=== PATIENT | female | born 1965 | race Caucasian/White ===

== ENCOUNTER → 2019-12-06 07:49 | Outpatient (CLI) | payer BC, SELFPAY ==
--- NOTE | ~2019-12-06 | US_ITS ---
US abdomen complete EXAMINATION: US Abdomen Complete INDICATION: Thrombocytopenia PROCEDURE: Realtime High Resolution abdomen ultrasound. COMPARISON: No prior studies for comparison FINDINGS: Gallbladder contains a nonmobile echogenic focus measuring 6 mm. No gallstones, gallbladder wall thickening or pericholecystic fluid. Common bile duct measures 5 mm. Liver echotexture within normal limits without focal mass. Pancreas within normal limits. Pancreati c tail is obscured by bowel gas. Spleen is unremarkeable. Renal echotexture is within normal limits bilaterally without hydronephrosis, contour deforming mass or renal stone. Right kidney measures 11.6 cm. Left kidney measures 11.6 cm. Visualized aspects of the aorta and IVC are within normal limits. Portal vein is patent. No sonograph ic Alvarado's sign indicated by the technologist. IMPRESSION: 1: Gallbladder polyp measuring 6 mm. Reviewed, dictated and finalized at location B.
== END ==
PROVIDERS: PCP Emergency Medicine; Visit Provider Emergency Medicine
DX: D69.6 Thrombocytopenia, unspecified (principal); K82.4 Cholesterolosis of gallbladder
CPT/HCPCS: 76700

== ENCOUNTER → 2020-01-05 12:14 | Outpatient (CLI) | payer BC, SELFPAY ==
--- NOTE | ~2020-01-05 | DEXA_ITS ---
Bone Density Report Name: Flory Barajas Age: 54 Sex: Female Ethnicity: White Date of : 1965 Indication: postmenopausal; screening for osteoporosis; Referring Provider: GABRIEL LOPEZ Study: Bone densitometry was performed. Exam Date: January 05, 2020 Accession number: [id number] Bone Density: Region BMD T-score Z-score Classification AP Spine (L1-L4) 1.062 0.1 1.3 Normal Femoral Neck (Left) 0.758 -0.8 0.3 Normal Total Hip (Left) 0.983 0.3 1.1 Normal Femoral Neck (Right) 0.738 -1.0 0.1 Normal Total Hip (Right) 0.930 -0.1 0.7 Normal Total Hip Mean 0.957 0.1 0.9 Normal World Health Organization criteria for BMD impression classify patients as: Normal (T-score at or above -1.0), Osteopenia (T-score between -1.0 and -2.5), or Osteoporosis (T-score at or below -2.5). 10-year Fracture Risk: FRAX not reported because: All T-scores for Spine Total, Hip Total, Femoral Neck at or above -1.0 Clinical Information Provided by Patient: Patient maximum height was 64 Menopause Age: 51 No regular weight bearing exercise Drinks caffeinated beverages Onset of menses at age 10 Number of children 2 Impression: The patient has normal bone mass. Discussion: BONE DENSITY IS ABOVE THE MINIMUM DESIRABLE LEVEL AT ALL SKELETAL SITES TESTED. This patient?s bone mineral density is above the minimum desirable level (T-score -1.0 or better) at all sites measured. The patient should follow a healthful lifestyle (good nutrition with adequate calcium and vitamin D, and appropriate weight-bearing exercise). Follow-Up: Consider repeating this study in 5 years or sooner if there is some new clinical indication. Reported by: KAILYN on 01/05/2020 2:56:00 PM. Reviewed, dictated and finalized at location A. [facility]
--- NOTE | ~2020-01-05 | MM_ITS ---
EXAMINATION: MM screening [facility] BI w sheree HISTORY: Screening TECHNIQUE: Craniocaudal and mediolateral oblique 3-D tomosynthesis images were obtained and synthetic 2-D images were generated. CAD analysis was submitted and interpreted. COMPARISON: Comparison to multiple prior studies sequentially, with oldest reviewed study dated 11/05. BREAST PARENCHYMAL COMPOSITION: There are scattered areas of fibroglandular density. FINDINGS: There is no evidence of suspicious mass, calcification, or architectural distortion to sugg est malignancy in either breast. There has been no suspicious interval change. IMPRESSION: 1. No mammographic evidence of malignancy. 2. Recommend routine screening mammography in one year. BI-RADS Category 1: Negative Reviewed, dictated and finalized at location A.
== END ==
PROVIDERS: PCP Emergency Medicine; Visit Provider Emergency Medicine
DX: Z12.31 Encounter for screening mammogram for malignant neoplasm of breast (principal); Z78.0 Asymptomatic menopausal state
CPT/HCPCS: 77063; 77067; 77080

== ENCOUNTER → 2020-07-02 10:18 | Outpatient (CLI) | payer BC, SELFPAY ==
--- NOTE | ~2020-07-02 | US_ITS ---
EXAMINATION: US abdomen limited DATE: 07/02/2020 10:34 INDICATION: Cluster almost a gallbladder TECHNIQUE: Multiple grayscale and Doppler ultrasound images of the abdomen were obtained. COMPARISON: 12/06/2019 FINDINGS: The head, body, and tail of the pancreas are normal. The liver is normal with normal echoge nicity and echotexture. No surface nodularity. Normal hepatopetal flow in the main portal vein. There is a 6 mm gallbladder polyp which is not significantly changed since the comparison examination. The re is no gallbladder wall thickening or pericholecystic fluid. The normal common bile duct measures 5 mm. There was no sonographic Alvarado sign. IMPRESSION: 1. Stable 6 mm gallbladder polyp. Reviewed, dictated and finalized at location B.
== END ==
PROVIDERS: Visit Provider Surgery
DX: K82.4 Cholesterolosis of gallbladder (principal)
CPT/HCPCS: 76705

== ENCOUNTER → 2021-04-16 10:26 | Outpatient (CLI) | payer BC, SELFPAY ==
--- NOTE | ~2021-04-16 | MM_ITS ---
EXAMINATION: MM screening [facility] BI w sheree HISTORY: Screening mammogram TECHNIQUE: Craniocaudal and mediolateral oblique 3-D tomosynthesis images were obtained and synthetic 2-D images were generated. CAD analysis was submitted and interpreted. COMPARISON: 01/05/2020, 05/13/2018, 04/28/2018, 03/11/2017 BREAST PARENCHYMAL COMPOSITION: There are scattered areas of fibroglandular density. FINDINGS: There is no evidence of suspicious mass, calcification, or architectural distortion to sugg est malignancy in either breast. There has been no suspicious interval change. IMPRESSION: 1. No mammographic evidence of malignancy. 2. Recommend routine screening mammography in one year. BI-RADS Category 1: Negative Reviewed, dictated and finalized at location A. [employer]
== END ==
PROVIDERS: PCP Emergency Medicine; Visit Provider Emergency Medicine
DX: Z12.31 Encounter for screening mammogram for malignant neoplasm of breast (principal)
CPT/HCPCS: 77063; 77067

== ENCOUNTER → 2021-07-02 08:11 | Outpatient (CLI) | payer BC, SELFPAY ==
--- NOTE | ~2021-07-02 | US_ITS ---
EXAMINATION: US abdomen limited DATE: 07/02/2021 08:48 INDICATION: Cholesterolosis of the gallbladder TECHNIQUE: Multiple grayscale and Doppler ultrasound images of the abdomen were obtained. COMPARISON: 07/02/2020 FINDINGS: The head and body of the pancreas are normal. The pancreatic tail is obscured by bowel gas. The liver is normal with normal echogenicity and echotexture. No surface nodularity. Normal hepatope lauro flow in the main portal vein. There is a 7 mm polyp of the gallbladder, not significantly changed since the comparison examination. There is no pericholecystic fluid. The normal common bile duct cici sures 6 mm. There was no sonographic Alvarado sign. IMPRESSION: 1. Stable gallbladder polyp. Follow-up ultrasound in one year is recommended. Reviewed, dictated and finalized at location A.
== END ==
PROVIDERS: PCP Emergency Medicine; Visit Provider Surgery
DX: K82.4 Cholesterolosis of gallbladder (principal)
CPT/HCPCS: 76705

== ENCOUNTER → 2022-06-04 10:53 | Outpatient (CLI) | payer BC, SELFPAY ==
--- NOTE | ~2022-06-04 | MM_ITS ---
EXAMINATION: MM screening [facility] BI w sheree HISTORY: Screening mammogram TECHNIQUE: Craniocaudal and mediolateral oblique 3-D tomosynthesis images were obtained and synthetic 2-D images were generated. CAD analysis was submitted and interpreted. COMPARISON: 04/16/2021, 01/05/2020 bilateral screening mammogram examinations BREAST PARENCHYMAL COMPOSITION: There are scattered areas of fibroglandular density. FINDINGS: There is no evidence of suspicious mass, calcification, or architectural distortion to sugg est malignancy in either breast. There has been no suspicious interval change. IMPRESSION: 1. No mammographic evidence of malignancy. 2. Recommend routine screening mammography in one year. BI-RADS Category 1: Negative Reviewed, dictated and finalized at location A.
--- NOTE | ~2022-06-04 | US_ITS ---
Limited Abdominal Sonogram: Real-time sonographic imaging of the right upper quadrant was performed. Clinical History: Gallbladder polyp COMPARISON: 07/02/2021 Findings: The liver appears normal with no evidence of mass lesion or bile duct dilatation. Main por lauro vein demonstrates normal direction of flow. The gallbladder is well distended, without mobile gal lstone. 8 mm gallbladder wall polyp is stable from prior exam. The common bile duct measures 4 mm. T he visualized pancreas, aorta, and IVC are unremarkable. Right kidney measures 11.1 cm in length, wit hout evidence of hydronephrosis. Impression: 8 mm gallbladder wall polyp, unchanged. Reviewed, dictated and finalized at location M. Impression: 8 mm gallbladder wall polyp, unchanged.
== END ==
PROVIDERS: PCP Emergency Medicine; Visit Provider Emergency Medicine
DX: Z12.31 Encounter for screening mammogram for malignant neoplasm of breast (principal); K82.4 Cholesterolosis of gallbladder
CPT/HCPCS: 76705; 77063; 77067

== ENCOUNTER 2024-01-19 11:25 | Outpatient (CLI) | payer BC, SELFPAY ==
--- NOTE | ~2024-01-19 | MM_ITS ---
EXAMINATION: MM screening [facility] BI w sheree HISTORY: Screening mammogram TECHNIQUE: Craniocaudal and mediolateral oblique 3-D tomosynthesis images were obtained and synthetic 2-D images were generated. CAD analysis was submitted and interpreted. COMPARISON: 06/04/2022, 04/16/2021, 01/05/2020 BREAST PARENCHYMAL COMPOSITION:Not Dense. There are scattered areas of fibroglandular density. FINDINGS: No suspicious mass, calcification, or architectural distortion are identified in either sha ast to suggest malignancy. There has been no suspicious interval change. IMPRESSION: No mammographic evidence of malignancy. Recommend routine screening mammography in one year. BI-RADS Category 1: Negative Reviewed, dictated and finalized at location .
== END 2024-01-19 11:26 | disposition home or self-care (01) ==
LOC: MICIMG 11:27
PROVIDERS: PCP Emergency Medicine; Visit Provider Emergency Medicine
DX: Z12.31 Encounter for screening mammogram for malignant neoplasm of breast (principal)
CPT/HCPCS: 77063; 77067

== ENCOUNTER 2024-05-26 00:43 | Day surgery (SDC) | payer OTHER, SELFPAY ==
[2024-05-11 14:52] VITALS: BMI 25.7
--- OUTSIDE RECORDS SUMMARY | 2024-05-26 00:48 | XMS_ITS | Clinical Summary ---
Author Organization [facility] Address [address] [place] [address] Care Team Providers Care Dry Wall Plasterer Name Role Phone Beka Luis MD Primary Care Provider [phone] Source Comments [facility],non-owned Affiliates and Associated Physician Practices is amultiple site organization consisting of ambulatory clinics and hospital sitesin [place] and [place]. This disclosure is being madepursuant to the Care Everywhere program and may not contain all information available regarding this patient. Last updated 17.[employer] Allergies No known active allergies Medications Be aware that medications may not be up to date on this document. Always verify current medications with the patient. No known medications Social History Tobacco Use Types Packs/Day Years Used Date Smoking Tobacco: Never Sex and Gender Information Value Date Recorded Sex Assigned at Not on file Gender Identity Not on file Sexual Orientation Not on file Last Filed Vital Signs Vital Sign Reading Time Taken Comments Blood Pressure 142/102 06/11/2016 3:41 PM CDT Pulse 117 06/11/2016 3:21 PM CDT Temperature 37.1 C (98.7 F) 06/11/2016 3:21 PM CDT Respiratory Rate 16 06/11/2016 3:21 PM CDT Oxygen Saturation 99% 06/11/2016 3:21 PM CDT Inhaled Oxygen Concentration - - Weight 67.1 kg (148 lb) 06/11/2016 3:21 PM CDT Height 162.6 cm (5' 4 ) 06/11/2016 3:21 PM CDT Body Mass Index 25.4 06/11/2016 3:21 PM CDT Plan of Treatment Health Maintenance Due Date Last Done Comments COLOGUARD (AGES 45-75) - COL ON CA SCREENING 1965 COLON MONITORING 1965 COLONOSCOPY - COLON CA SCREENING 1963 CT COLONOGRAPHY - COLON CA SCREENING 1965 Colorectal Cancer Screening 1965 FIT - COLON CA SCREENING 1963 FLEX SIG - COLON CA SCREENING 1965 LIPID TESTING 1965 MAMMOGRAM 1965 PAP SMEAR 1963 HIV SCREENING 1978 HEPATITIS C SCREENING 04/26/1981 DTAP/TDAP/TD VACCINES (1 - Tdap) 1982 PNEUMOCOCCAL VACCINE 50+ (1 of 1 - PCV) 2013 ZOSTER VACCINE (1 of 2) 2013 COVID-19 VACCINE ( - 2023-2 5 season) 2023 INFLUENZA VACCINE (#1) 2023 DEPRESSION SCREENING 03/23/2024 Respiratory Syncytial Virus (RSV) Vaccine Pt: or over 60 yrs (1 - 1-dose 75+ series) 2038 HEPATITIS B VACCINE Aged Out No longe r eligible based on patient's age to complete this topic HIB VACCINE Aged Out No longer eligi ble based on patient's age to complete this topic HPV VACCINE Aged Out No longer eligi ble based on patient's age to complete this topic MENINGOCOCCAL (Group B) VACCINE Aged Out No longer eligible based on patient's age to complete this topic MENINGOCOCCAL VACCINE Aged Out No perlita cee eligible based on patient's age to complete this topic PNEUMOCOCCAL VACCINE Aged Out No long er eligible based on patient's age to complete this topic Care Teams Dry Wall Plasterer Relationship Specialty Start Date End Date Beka Luis MD [address] [place] [address] PCP - General 05/27/18
--- OUTSIDE RECORDS SUMMARY | 2024-05-26 00:48 | XMS_ITS | Referral Summary ---
Author Organization [facility] Address [address] [place] [id number] Care Team Providers Care Meat Cutter Apprentice Name Role Phone Amish De Jesus MD Primary Care Provider [phone] Allergies No known active allergies Medications metoprolol (LOPRESSOR) 100 mg tablet 1 03/25/2018 Active sertraline (ZOLOFT) 50 mg tablet 0 04/22/2018 Active metoprolol XL (TOPROL-XL) 100 mg 24 hr tablet 03/22/2021 Active rosuvastatin (CRESTOR) 10 mg tablet 03/05/2021 Active Allergy Relief, fexofenadine, 180 mg tablet 02/02/2021 Active zolpidem CR (AMBIEN CR) 12.5 mg CR tablet 02/20/2021 Active Active Problems Problem Noted Date Diagnosed Date Cyst of left breast 06/02/2018 Social History Tobacco Use Types Packs/Day Years Used Date Smoking Tobacco: Never Smokeless Tobacco: Never Alcohol Use Standard Drinks/Week Comments Yes 0 (1 standard drink = 0.6 oz pur e alcohol) Personal Safety Answer Date Recorded Getting School Help Needed Not on file 06/04 Comments No Sex and Gender Information Value Date Recorded Sex Assigned at Not on file Legal Sex Female 1:53 AM COUNTER SUPPLY WORKER Gender Identity Not on file Sexual Orientation Not on file Last Filed Vital Signs Vital Sign Reading Time Taken Comments Blood Pressure 146/89 03/28/2021 10:39 AM COUNTER SUPPLY WORKER Pulse 71 03/28/2021 10:39 AM COUNTER SUPPLY WORKER Temperature 36.9 C (98.5 F) 03/28/2021 10:39 AM COUNTER SUPPLY WORKER Respiratory Rate 16 03/28/2021 10:39 AM COUNTER SUPPLY WORKER Oxygen Saturation 96% 03/28/2021 10:39 AM COUNTER SUPPLY WORKER Inhaled Oxygen Concentration - - Weight 67.6 kg (149 lb) 03/28/2021 10:39 AM COUNTER SUPPLY WORKER Height 162.6 cm (5' 4 ) 03/28/2021 10:39 AM COUNTER SUPPLY WORKER Body Mass Index 25.58 03/28/2021 10:39 AM COUNTER SUPPLY WORKER Plan of Treatment Not on file [place] Care Teams Meat Cutter Apprentice Relationship Specialty Start Date End Date Amish De Jesus MD [address] [place] [address] PCP - General Family Medicine 03/28/21
--- OUTSIDE RECORDS SUMMARY | 2024-05-26 00:48 | XMS_ITS | Patient Health Summary ---
Author Organization [facility] [employer] Address [address] [facility] [place] [address] Care Team Providers Care Inspector Production Plastic Parts Name Role Phone Beka Luis MD Primary Care Provider [phone] Note from [facility] [employer] [facility],non-owned Affiliates and Associated Physician Practices is amultiple site organization consisting of ambulatory clinics and hospital sitesin [place], [place], [place] and [place]. This disclosure is being madepursuant to the Care Everywhere program and may not contain all information available regarding this patient. Last updated 17.[facility] [employer] Allergies No known active allergies Medications Be [...] Mass Index 25.4 06/11/2016 3:21 PM CDT Procedures * STREP A SCREEN - POINT OF CARE (AMB) STL(Performed 06/11/2016) Performed for Acute pharyngitis, unspecified etiology Results * STREP A SCREEN (06/11/2016) Strep A Rapid POCT Negative Negative Strep A Internal Control Present Lot # [id number] Expiration Date [id number] Throat ENTIRE THROAT (SURFACE REGION OF NECK) / Unknown 06/11/2016 To[facility] DEV TECHNICAL [facility] EXP[facility] - POINT OF CARE ORDERABLES Care Teams Inspector Production Plastic Parts Relationship Specialty Start Date End Date Beka Luis MD [address] [place] [address] PCP - General 05/27/18
--- OUTSIDE RECORDS SUMMARY | 2024-05-26 00:48 | XMS_ITS | Encounter Summary ---
Author Organization [facility] Address [address] [place] [address] Care Team Providers Care Bath House Attendant Name Role Phone Unavailable Primary Care Provider Unavailabl e Encounter Details Date Type Department Care Team (Late st Contact Info) Description 05/24/2024 External Device Data [facility] ABSTRACTION Provider, Abstract NO ADDRESS ON FILE Social History Tobacco Use Types Packs/Day Years Used Date Smoking Tobacco: Never Assessed Comments Unknown Sex and Gender Information Value Date Recorded Sex Assigned at Not on file Legal Sex Female 12:16 PM CDT Gender Identity Not on file Sexual Orientation Not on file documented as of this encounter Plan of Treatment Not on file documented as of this encounter Visit Diagnoses Not on filedocumented in this encounter
--- OUTSIDE RECORDS SUMMARY | 2024-05-26 00:48 | XMS_ITS | Referral Summary ---
Author Organization [facility] Address [address] [place] [address] Care Team Providers Care Counsel Name Role Phone Beka Luis MD Primary Care Provider [phone] Source Comments [facility],non-owned Affiliates and Associated Physician Practices is amultiple site organization consisting of ambulatory clinics and hospital sitesin [place], [place], [place] and [place]. This disclosure is being madepursuant to the Care Everywhere program and may not contain all information available regarding this patient. Last updated 17.[facility] Allergies No known active allergies Medications Be [...] 06/11/2016 3:21 PM CDT Plan of Treatment Not on file Care Teams Counsel Relationship Specialty Start Date End Date Beka Luis MD [address] [place] [address] PCP - General 05/27/18
--- OUTSIDE RECORDS SUMMARY | 2024-05-26 00:48 | XMS_ITS | Clinical Summary ---
Author Organization [facility] Address [address] [place] [phone] Care Team Providers Care Rug Dyer Name Role Phone Amish De Jesus MD Primary Care Provider [phone] Allergies No known active allergies Medications metoprolol [...] Diagnosed Date Cyst of left breast 06/02/2018 Medical History Medical History Date Comments Hypertension Overweight Family History Medical History Relation Name Comments Colon cancer Paternal Grandmother Relation Name Status Comments Paternal Grandmother Social History Tobacco Use Types Packs/Day Years [...] on file Legal Sex Female 1:53 AM BRICK TOSSER Gender Identity Not on file Sexual Orientation Not on file Obstetrics History Last Filed Vital Signs Vital Sign Reading Time Taken Comments Blood Pressure 146/89 03/28/2021 10:39 AM BRICK TOSSER Pulse 71 03/28/2021 10:39 AM BRICK TOSSER Temperature 36.9 C (98.5 F) 03/28/2021 10:39 AM BRICK TOSSER Respiratory Rate 16 03/28/2021 10:39 AM BRICK TOSSER Oxygen Saturation 96% 03/28/2021 10:39 AM BRICK TOSSER Inhaled Oxygen Concentration - - Weight 67.6 kg (149 lb) 03/28/2021 10:39 AM BRICK TOSSER Height 162.6 cm (5' 4 ) 03/28/2021 10:39 AM BRICK TOSSER Body Mass Index 25.58 03/28/2021 10:39 AM BRICK TOSSER Plan of Treatment Not on file Insurance [employer] [place] [employer] [place] Care Teams Rug Dyer Relationship Specialty Start Date End Date Amish De Jesus MD [address] [place] [address] PCP - General Family Medicine 03/28/21
--- OUTSIDE RECORDS SUMMARY | 2024-05-26 00:48 | XMS_ITS | Clinical Summary ---
Author Organization [facility] Address [address] [place] [address] Care Team Providers Care Field Spec Name Role Phone Unavailable Primary Care Provider Unavailabl e Medications zolpidem (AMBIEN CR) 12.5 mg Controlled Release tablet TAKE 1 TABLET BY MOUTH EVERYDAY AT BEDTIME NEEDED FOR INSOMNIA, AVOID DRIVING OR OPERATING MACHINES. 30 Tablet 5 09/01/2022 3:16 PM CDT 2 Active sertraline (ZOLOFT) 50 mg tablet Take 1 Tablet (50 mg) by mouth daily. 90 Tablet 3 09/04/2022 11:07 AM CDT 3 Active rosuvastatin (Crestor) 20 mg tablet Take 1 Tablet (20 mg) by mouth daily. 90 Tablet 1 09/04/2022 11:07 AM CDT 3 Active fexofenadine (KAMALA) 180 mg tablet Take 1 Tablet (180 mg) by mouth daily. 90 Tablet 3 05/19/2023 1:14 PM METAL BUGGY OPERATOR 3 Active nebivoloL (BYSTOLIC) 10 mg Tablet Take 1 Tablet (10 mg) by mouth daily. 90 Tablet 3 03/13/2023 4:24 PM METAL BUGGY OPERATOR 3 Active rosuvastatin (Crestor) 20 mg tablet Take 1 Tablet (20 mg) by mouth daily. 90 Tablet 3 12/07/2023 4:10 PM CDT 3 Active sertraline (Zoloft) 50 mg tablet Take 1 Tablet (50 mg) by mouth daily. 90 Tablet 3 12/07/2023 4:10 PM CDT 3 Active zolpidem (Ambien CR) 12.5 mg Controlled Release tablet Take 1 Tablet (12.5 mg) by mouth daily at bedtime 30 Tablet 5 11/26/2023 12:27 PM CDT 4 Active ipratropium bromide (ATROVENT) 42 mcg (0.06 %) [place], Non-Aerosol Administer 2 sprays in each nostril 3 times daily 15 mL 2 06/26/2023 1:03 PM CDT 4 Active nebivoloL (BYSTOLIC) 10 mg Tablet Take 1 Tablet (10 mg) by mouth daily. 90 Tablet 3 03/08/2024 3:49 PM METAL BUGGY OPERATOR 4 Active zolpidem (Ambien CR) 12.5 mg Controlled Release tablet Take 1 Tablet (12.5 mg) by mouth daily at bedtime 90 Tablet 1 03/14/2024 9:21 AM METAL BUGGY OPERATOR 4 Active rosuvastatin (Crestor) 20 mg tablet Take 1 Tablet (20 mg) by mouth daily. 90 Tablet 3 03/14/2024 9:21 AM METAL BUGGY OPERATOR 4 Active fexofenadine (KAMALA) 180 mg tablet Take 1 Tablet (180 mg) by mouth daily. 90 Tablet 3 03/14/2024 9:21 AM METAL BUGGY OPERATOR 4 Active fluticasone propionate (FLONASE) 50 mcg/spray [place], Suspension nasal inhaler Administer 2 Sprays in each nostril daily. 16 Gram 03/14/2024 9:21 AM METAL BUGGY OPERATOR 4 Active nebivoloL (BYSTOLIC) 10 mg Tablet Take 1 Tablet (10 mg) by mouth daily. 90 Tablet 3 4 Active sertraline (Zoloft) 50 mg tablet Take 1 Tablet (50 mg) by mouth daily. 90 Tablet 3 03/14/2024 9:21 AM METAL BUGGY OPERATOR 4 Active Encounters Date Type Department Care Team Description 05/24/2024 External Device Data [facility] ABSTRACTION Provider, Abstract 05/10/2024 External Device Data [facility] ABSTRACTION Provider, Abstract 04/13/2024 External Device Data [facility] ABSTRACTION Provider, Abstract 04/12/2024 External Device Data [facility] ABSTRACTION Provider, Abstract 04/05/2024 External Device Data [facility] ABSTRACTION Provider, Abstract 03/29/2024 External Device Data [facility] ABSTRACTION Provider, Abstract from Last 3 Months Immunizations Immunization Administration Dates Next Due (COMIRNATY)(12 YR UP) COVID- 19 VACCINE, MRNA, SPIKE PROTEIN, LNP, JAMES(PF) 30 MCG/0.3 ML IM SUSP 01/19/2024 INFLUENZA VACCINE QUADRIVALENT 6 MOS UP PF IM ,12/13/2021 INFLUENZA VACCINE TRIVALENT SPLIT VIRUS, (6 MOS UP), 0.5ML (PF), IM 01/19/2024 Social History Tobacco Use Types Packs/Day Years Used Date Smoking Tobacco: Never Assessed Comments Unknown Sex and Gender Information Value Date Recorded Sex Assigned at Not on file Legal Sex Female 12:16 PM CDT Gender Identity Not on file Sexual Orientation Not on file Plan of Treatment Health Maintenance Due Date Last Done Comments DTAP/TDAP/TD VACCINES (1 - Tdap) 1982 CERVICAL CANCER SCREENING 1993 BREAST CANCER SCREENING 2003 COLORECTAL SCREENING 2008 Colorectal Cancer Screening 2008 FIT-DNA Q 3 years 2008 FIT/FOBT Q 1 year 2008 Flex Sig/CT Colonography Q 5 years 2008 ZOSTER VACCINE (1 of 2) 2013 RSV VACCINE (60+ or ) (1 - 1-dose 75+ series) 2038 COVID-19 Vaccine Completed 01/19/2024 INFLUENZA VACCINE Completed 01/19/2024, 12/11/2022, 12/13/2021 HEPATITIS B VACCINES Aged Out No long er eligible based on patient's age to complete this topic PNEUMOCOCCAL VACCINE 0-49 YEARS Aged Out No longer eligible b ased on patient's age to complete this topic Insurance RX [employer] Commercial RX [employer] PLANS (INTERNAL) [facility]
[2024-05-26 06:44] VITALS: BP 138/81; PULSE 64; RESP 16; TEMP 36.2; O2SAT 97; BMI 26.2
[2024-05-26] MEDS: LACTATED RINGERS 1,000 ML 150 ML IV CONT (06:51)
--- NOTE | 2024-05-26 07:02 | P.PNAN_ITS ---
Anes - Initial Pre Proc Eval Procedure: Operation Date: 05/26/24 08:00 Proposed Procedures p Colonoscopy - Rajan Francois MD Date/Time: 05/26/24 07:02 Surgeon: Rajan Francois MD Pre Op Diagnosis: Polyp colon Patient Data Age: 59 Gender: F Height: 1.63 m Weight: 69.2 kg Last Vital Signs Temp 36.2 C L 05/26/24 06:44 Pulse 64 05/26/24 06:44 Resp 16 05/26/24 06:44 BP 138/81 05/26/24 06:44 Pulse Ox 97 05/26/24 06:44 O2 Del Method Room Air 05/26/24 06:44 Allergies Allergy/AdvReac Type Severity Reaction Status Date / Time No Known Allergies Allergy Verified 05/26/24 06:43 Home Medications ?Medication ?Instructions ?Recorded ?Confirmed ?Type fexofenadine 180 mg tablet 180 mg PO DAILY 01/02/20 05/26/24 History ipratropium bromide 42 mcg (0.06 2 spray intranasal TID 01/02/20 05/26/24 History %) nasal spray metoprolol succinate 100 mg 100 mg PO DAILY 01/02/20 05/26/24 History tablet,extended release 24 hr rosuvastatin 10 mg tablet (Crestor) 10 mg PO DAILY 01/02/20 05/26/24 History sertraline 50 mg tablet (Zoloft) 50 mg PO DAILY 01/02/20 05/26/24 History multivitamin (Daily Multi-Vitamin 1 tablet PO DAILY 05/11/24 05/26/24 History tablet) zolpidem 12.5 mg tablet,extended 12.5 mg PO DAILY 05/11/24 05/26/24 History release,multiphase Patient hx anesthesia problems: none Family hx anesthesia problems: none Results Review: All pre-operative results and documents have been reviewed as part of the pre- operative evaluation. [facility], LAT[facility] Past Medical History Medical History High cholesterol HTN (hypertension) HLP (hyperkeratosis lenticularis perstans) Surgical History Surgical History Hx of tonsillectomy Family History Family History Father CHF (congestive heart failure) Parkinson disease Mother Hypertension Sibling Coronary artery disease Other Cancer Cerebrovascular accident Social History Social History Smoking status: Never smoker Alcohol intake: current Drinks per week: 3 Substance use: never Substance use type: does not use Living arrangements: with family Occupation/Education: other 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 Informed Consent: The patient's anesthetic plan and its attendant risks and benefits were discussed with the patient/family/POA. Questions were solicited and answers provided to the satisfaction of the patient/family/POA.
--- NOTE | 2024-05-26 07:42 | PM.HPGS ---
History of Present Illness History of Present Illness Consent: Risks, benefits, and alternatives have been discussed and questions answered. Patient agrees to proceed with procedure. Chief complaint: Polyp colon Narrative: Flory Barajas is a 59 year old female with colon polyp 6 years ago Review of Systems Review of Systems: All systems reviewed & are unremarkable except as noted in HPI and below PMFSH Past Medical History Medical History (Updated 05/26/24 @ 07:42 by Rajan Francois MD) Colon polyp High cholesterol HTN (hypertension) HLP (hyperkeratosis lenticularis perstans) Surgical History Surgical History Hx of tonsillectomy Family History Family History Father CHF (congestive heart failure) Parkinson disease Mother Hypertension Sibling Coronary artery disease Other Cancer Cerebrovascular accident Social History Social History Smoking status: Never smoker Alcohol intake: current Drinks per week: 3 Substance use: never Substance use type: does not use Living arrangements: with family Occupation/Education: other 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 Gender identity (if verbalized by the patient): Female Spiritual care concerns: No Meds Home Medications and Allergies Home Medications ?Medication ?Instructions ?Recorded ?Confirmed ?Type fexofenadine 180 mg tablet 180 mg PO DAILY 01/02/20 05/26/24 History ipratropium bromide 42 mcg (0.06 2 spray intranasal TID 01/02/20 05/26/24 History %) nasal spray metoprolol succinate 100 mg 100 mg PO DAILY 01/02/20 05/26/24 History tablet,extended release 24 hr rosuvastatin 10 mg tablet (Crestor) 10 mg PO DAILY 01/02/20 05/26/24 History sertraline 50 mg tablet (Zoloft) 50 mg PO DAILY 01/02/20 05/26/24 History multivitamin (Daily Multi-Vitamin 1 tablet PO DAILY 05/11/24 05/26/24 History tablet) zolpidem 12.5 mg tablet,extended 12.5 mg PO DAILY 05/11/24 05/26/24 History release,multiphase Allergies Allergy/AdvReac Type Severity Reaction Status Date / Time No Known Allergies Allergy Verified 05/26/24 06:43 Vital Signs Vital Signs - 24 hr 05/26/24 06:44 Temperature 97.2 F L Pulse Rate 64 Respiratory Rate 16 Blood Pressure 138/81 Pulse Oximetry 97 Oxygen Delivery Room Air Exam Const: General: comfortable and no acute distress HENMT: Face/Nose/Sinus: Normal nares present Eyes: General: appearance normal, both eyes and all related structures Neck: Neck: no JVD Resp: Auscultation: clear to auscultation bilaterally Cardio: Rate: regular rate Rhythm: regular rhythm GI: Inspection: non-distended GI Palp: Yes Soft to palpation Skin: General skin exam: normal color Neuro: General: gait normal Speech: normal speech Extrem: General: normal to inspection Psych: Mental Status: mental status grossly normal Assessment and Plan Assessment and plan (1) Colon polyp: Code(s): K63.5 - Polyp of colon Status: Acute Assessment and Plan: colonoscopy
[2024-05-26 07:57] VITALS: BP 100/65; PULSE 66; RESP 16; O2SAT 98
[2024-05-26 08:07] VITALS: BP 140/84; PULSE 68; RESP 16; O2SAT 100
[2024-05-26 08:17] VITALS: BP 130/89; PULSE 60; RESP 23; O2SAT 100
== END 2024-05-26 08:20 | disposition home or self-care (01) ==
PROVIDERS: PCP Emergency Medicine; Referring Provider Emergency Medicine; Visit Provider Internal Medicine Gastroenterology
PROC: 0DJD8ZZ Inspection of Lower Intestinal Tract, Via Natural or Artificial Opening Endoscopic (ICD-10-PCS; CPT 45378; principal; 2024-05-26 08:00)
DX: Z12.11 Encounter for screening for malignant neoplasm of colon (principal); K63.5 Polyp of colon; K57.30 Diverticulosis of large intestine without perforation or abscess without bleeding; K64.8 Other hemorrhoids
CPT/HCPCS: 45385; 88305; J2704; J7120

== ENCOUNTER 2024-08-04 13:56 | Outpatient (CLI) | payer OTHER, SELFPAY ==
--- NOTE | ~2024-08-04 | DEXA_ITS ---
Bone Density Report Name: SADNRA MCGEE Age: 59 Sex: Female Ethnicity: White Date of : 1965 Indication: postmenopausal; screening for osteoporosis; Referring Provider: GABRIEL LOPEZ Study: Bone densitometry was performed. Exam Date: August 04, 2024 Accession number: [id number] Bone Density: Region BMD T-score Z-score Classification AP Spine(L1-L4) 1.033 -0.1 1.4 Normal Femoral Neck (Left) 0.717 -1.2 0.2 Osteopenia Total Hip (Left) 0.979 0.3 1.3 Normal Femoral Neck (Right) 0.744 -0.9 0.4 Normal Total Hip (Right) 0.994 0.4 1.4 Normal Total Hip Mean 0.986 0.4 1.4 Normal World Health Organization criteria for BMD impression classify patients as: Normal (T-score at or above -1.0), Osteopenia (T-score between -1.0 and -2.5), or Osteoporosis (T-score at or below -2.5). 10-year Fracture Risk(1): Major Osteoporotic Fracture 7.7% Hip Fracture 0.5% Reported Risk Factors: [place] (), Neck BMD=0.717, BMI=26.4 (1) FRAX(R) Version 3.08. Fracture probability calculated for an untreated patient. Fracture probability may be lower if the patient has received treatment. Clinical Information Provided by Patient: Has used the following medications: Vitamin D, Calcium Patient maximum height was 64 Menopause Age: 51 No regular weight bearing exercise Does not regularly consume dairy products Drinks caffeinated beverages Onset of menses at age 10 Number of children 2 Impression: The patient has low bone mass, based on the Left Femoral Neck T-score. The patient has an estimated ten-year risk of hip fracture of 0.5% and an estimated ten-year risk of major fracture of 7.7%, based on the WHO FRAX algorithm. Discussion: BONE DENSITY IS LOW AT ONE OR MORE SKELETAL SITES. This patient's lowest T-score is low at one or more skeletal sites. It meets the World Health Organization's (WHO) criteria for “low bone mass” (T-score between -1.0 and -2.5). The patient's 10-year risk of fracture as calculated by FRAX is less than the threshold where pharmacological therapy is recommended by the National Osteoporosis Foundation (NOF). However, all treatment decisions require clinical judgment and consideration of individual patient factors, including patient preferences, comorbidities, previous drug use, risk factors not captured in the FRAX model (e.g., frailty, falls, vitamin D deficiency, increased bone turnover, interval significant decline in bone density) and possible under or overestimation of fracture risk by FRAX. The patient should follow a healthful lifestyle (good nutrition with adequate calcium and vitamin D, and appropriate weight-bearing exercise). Follow-Up: Consider repeating this study in 2 to 3 years to reassess this patient's status, or sooner if there is some new clinical indication. Reported by: KAILYN on 08/04/2024 2:42:00 PM. Reviewed, dictated and finalized at location A.
--- OUTSIDE RECORDS SUMMARY | 2024-08-04 14:02 | XMS_ITS | Clinical Summary ---
Author Organization [facility] Address [address] [place] [id number] Care Team Providers Care Heat Pump Installer Name Role Phone Amish De Jesus MD Primary Care Provider [phone] Allergies No known active allergies Medications metoprolol [...] on file Legal Sex Female 1:53 AM ADULT PROTECTIVE CASEWORKER Gender Identity Not on file Sexual Orientation Not on file Obstetrics History Last Filed Vital Signs Vital Sign Reading Time Taken Comments Blood Pressure 146/89 03/28/2021 10:39 AM ADULT PROTECTIVE CASEWORKER Pulse 71 03/28/2021 10:39 AM ADULT PROTECTIVE CASEWORKER Temperature 36.9 C (98.5 F) 03/28/2021 10:39 AM ADULT PROTECTIVE CASEWORKER Respiratory Rate 16 03/28/2021 10:39 AM ADULT PROTECTIVE CASEWORKER Oxygen Saturation 96% 03/28/2021 10:39 AM ADULT PROTECTIVE CASEWORKER Inhaled Oxygen Concentration - - Weight 67.6 kg (149 lb) 03/28/2021 10:39 AM ADULT PROTECTIVE CASEWORKER Height 162.6 cm (5' 4 ) 03/28/2021 10:39 AM ADULT PROTECTIVE CASEWORKER Body Mass Index 25.58 03/28/2021 10:39 AM ADULT PROTECTIVE CASEWORKER Plan of Treatment Not on file Insurance [employer] [place] Care Teams Heat Pump Installer Relationship Specialty Start Date End Date Amish De Jesus MD [address] [place] [address] PCP - General Family Medicine 03/28/21
--- OUTSIDE RECORDS SUMMARY | 2024-08-04 14:02 | XMS_ITS | Referral Summary ---
Author Organization [facility] Address [address] [place] [id number] Care Team Providers Care Band Builder Name Role Phone Amish De Jesus MD Primary Care Provider [phone] Allergies No known active allergies Medications metoprolol [...] on file Legal Sex Female 1:53 AM PIVOT END POLISHER Gender Identity Not on file Sexual Orientation Not on file Last Filed Vital Signs Vital Sign Reading Time Taken Comments Blood Pressure 146/89 03/28/2021 10:39 AM PIVOT END POLISHER Pulse 71 03/28/2021 10:39 AM PIVOT END POLISHER Temperature 36.9 C (98.5 F) 03/28/2021 10:39 AM PIVOT END POLISHER Respiratory Rate 16 03/28/2021 10:39 AM PIVOT END POLISHER Oxygen Saturation 96% 03/28/2021 10:39 AM PIVOT END POLISHER Inhaled Oxygen Concentration - - Weight 67.6 kg (149 lb) 03/28/2021 10:39 AM PIVOT END POLISHER Height 162.6 cm (5' 4 ) 03/28/2021 10:39 AM PIVOT END POLISHER Body Mass Index 25.58 03/28/2021 10:39 AM PIVOT END POLISHER Plan of Treatment Not on file Insurance [employer] [place] [employer] [place] Care Teams Band Builder Relationship Specialty Start Date End Date Amish De Jesus MD [address] [place] [address] PCP - General Family Medicine 03/28/21
--- OUTSIDE RECORDS SUMMARY | 2024-08-04 14:02 | XMS_ITS | Clinical Summary ---
Author [facility] Address [address] [place] [address] Care Team Providers Care Silk Spooler Name Role Phone Unavailable Primary Care Provider [...] daily. 90 Tablet 3 05/19/2023 1:14 PM SUPERVISOR VAT HOUSE 3 Active nebivoloL (BYSTOLIC) 10 mg Tablet Take 1 Tablet (10 mg) by mouth daily. 90 Tablet 3 03/13/2023 4:24 PM SUPERVISOR VAT HOUSE 3 Active rosuvastatin (Crestor) 20 mg tablet [...] ipratropium bromide (ATROVENT) 42 mcg (0.06 %) [place], Non-Aerosol Administer 2 sprays in each nostril 3 times daily 15 mL 2 06/26/2023 1:03 PM CDT 4 Active nebivoloL (BYSTOLIC) 10 mg Tablet Take 1 Tablet (10 mg) by mouth daily. 90 Tablet 3 03/08/2024 3:49 PM SUPERVISOR VAT HOUSE 4 Active zolpidem (Ambien CR) 12.5 mg Controlled Release tablet Take 1 Tablet (12.5 mg) by mouth daily at bedtime 90 Tablet 1 06/09/2024 3:16 PM CDT 4 Active rosuvastatin (Crestor) 20 mg tablet Take 1 Tablet (20 mg) by mouth daily. 90 Tablet 3 06/06/2024 2:06 PM CDT 4 Active fexofenadine (KAMALA) 180 mg tablet Take 1 Tablet (180 mg) by mouth daily. 90 Tablet 3 03/14/2024 9:21 AM SUPERVISOR VAT HOUSE 4 Active fluticasone propionate (FLONASE) 50 mcg/spray [place], Suspension nasal inhaler Administer 2 Sprays in each nostril daily. 16 Gram 03/14/2024 9:21 AM SUPERVISOR VAT HOUSE 4 Active nebivoloL (BYSTOLIC) 10 mg Tablet Take 1 Tablet (10 mg) by mouth daily. 90 Tablet 3 06/06/2024 2:06 PM CDT 4 Active sertraline (Zoloft) 50 mg tablet Take 1 Tablet (50 mg) by mouth daily. 90 Tablet 3 06/06/2024 2:06 PM CDT 4 Active Encounters Date Type Department Care Team Description 06/21/2024 External Device Data [facility] ABSTRACTION Provider, Abstract 06/08/2024 External Device Data [facility] ABSTRACTION Provider, Abstract 05/31/2024 External Device Data [facility] ABSTRACTION Provider, Abstract 05/31/2024 External Device Data [facility] ABSTRACTION Provider, Abstract 05/30/2024 External Device Data [facility] ABSTRACTION Provider, Abstract 05/28/2024 External Device Data [facility] ABSTRACTION Provider, Abstract 05/27/2024 External Device Data [facility] ABSTRACTION Provider, Abstract 05/24/2024 External Device Data [facility] ABSTRACTION Provider, [...] Comments DTAP/TDAP/TD VACCINES (1 - Tdap) 1982 HPV/Cotest (21-29) 1984 CERVICAL CANCER SCREENING 1993 HPV/Cotest (30-65) 1993 PAP SMEAR 1993 BREAST CANCER SCREENING 2003 COLORECTAL SCREENING 2008 Colorectal Cancer Screening 2008 FIT-DNA Q 3 years 2008 FIT/FOBT Q 1 year 2008 Flex Sig/CT Colonography Q 5 years 2008 ZOSTER VACCINE (1 of 2) 2013 RSV VACCINE (60+ or ) (1 - 1-dose 75+ series) 2038 COVID-19 Vaccine Completed 01/19/2024 INFLUENZA VACCINE Completed 01/19/2024, , 12/13/2021 Insurance RX JJ PLANS (INTERNAL) [facility] [employer] RX MEDIMPACT Member Subscriber Plan / Payer (Ef fective for All Dates) Name:Flory Barajas Relation to Subscriber:Spouse Payer ID:Not on file Group ID:[id number] Type:RX Commercial Address: [address]
--- OUTSIDE RECORDS SUMMARY | 2024-08-04 14:02 | XMS_ITS | Clinical Summary ---
Author Organization [facility] Address [address] [place] [address] Care Team Providers Care Etcher Aircraft Name Role Phone Beka Luis MD Primary Care Provider [phone] Source Comments [facility],non-owned Affiliates and Associated Physician Practices is amultiple site organization consisting of ambulatory clinics and hospital sitesin [place], [place], [place]. This disclosure is being madepursuant to the Care Everywhere program and may not contain all information available regarding this patient. Last updated 17.[facility] Allergies No known active allergies Medications * Be aware that medications may not be up to date on this document. Alwaysverify current medications with the patient. No known medications Social History Tobacco Use Types Packs/Day Years Used Date Smoking Tobacco: Never Comments Unknown Sex and Gender Information Value Date Recorded Sex Assigned at Not on file Legal Sex Female 3:09 PM CDT Gender Identity Not on file [...] VACCINE (1 of 2) 2013 COVID-19 VACCINE (1 - 2023-2 5 season) 2023 DEPRESSION SCREENING 03/23/2024 INFLUENZA VACCINE (Season Ended) 2024 Respiratory Syncytial Virus (RSV) Vaccine Pt: or [...] to complete this topic MENINGOCOCCAL (Group B) VACC INE SHARED DECISION-MAKING Aged Out No longer eligibl e based on patient's age to complete this topic MENINGOCOCCAL GROUPS A/C/Y/W VACCINE Aged Out No longer eligible b ased on patient's age to complete this topic Insurance [employer] SELF PAY NO INSURANCE Member Subscriber Plan / Payer (Ef fective for All Dates) Name:Flory Mcgee Member ID:Not on file Relation to Subscriber:Not on file Name:FLORY MCGEE Subscriber ID:Not on file (Home) Address: [address] [place] [id number] Payer ID:Not on file Group ID:Not on file Type:Self Pay Address: [facility] Care Teams Etcher Aircraft Relationship Specialty Start Date End Date Beka Luis MD [address] [place] [address] PCP - General 05/27/18
== END 2024-08-04 13:57 | disposition home or self-care (01) ==
PROVIDERS: PCP Emergency Medicine; Visit Provider Emergency Medicine
DX: M85.852 Other specified disorders of bone density and structure, left thigh (principal); Z78.0 Asymptomatic menopausal state
CPT/HCPCS: 77080